=== PATIENT | female | born 1950 | race Hispanic/Latino ===

== ENCOUNTER 2018-05-30 11:43 | Outpatient (CLI) | payer OTHER | END 2018-05-30 11:44 | disposition home or self-care (01) | LOC: C.PAT 11:43 | DX: R22.1 Localized swelling, mass and lump, neck (principal) ==

== ENCOUNTER 2018-06-07 06:09 | Day surgery (SDC) | payer OTHER ==
[2018-06-07] MEDS ORDERED: ceFAZolin 1 gm in NS 1 GM/100 ML BAG IVPB ONE (07:00)
[2018-06-07 08:34] VITALS: BMI 26.4
[2018-06-07] MEDS ORDERED: Acetaminophen-Codeine 300/30 mg Tab PO PRN (09:17)
[2018-06-07] MEDS ORDERED: Dextrose 5%/0.45% NS 1,000 ML IV SCH (09:30)
[2018-06-07] MEDS ORDERED: Lidocaine/Epinephrine 1% 1:100000 10 ML IJ ONE (09:48)
[2018-06-07] MEDS ORDERED: Midazolam 2 MG/2 ML VIAL ONE (09:58)
[2018-06-07] MEDS ORDERED: Propofol 10 mg/ml Inj (20 ML) ONE (09:59)
[2018-06-07] MEDS ORDERED: Lidocaine 4% (Laryng-O-Jet) Kit MM ONE (10:06)
[2018-06-07] MEDS ORDERED: HYDROmorphone 0.5 mg/0.5 ml ISec IVP PRN (10:44)
[2018-06-07] MEDS ORDERED: Lactated Ringer's 1,000 ML IV SCH (11:00)
[2018-06-07 11:58] VITALS: TEMP 98.8
[2018-06-07 16:12] VITALS: BP 110/62; PULSE 68; RESP 18; O2SAT 96
--- NOTE | 2018-06-07 20:05 | OP ---
PROCEDURE DATE: 06/07/2018 PREOPERATIVE DIAGNOSIS: Throat mass. POSTOPERATIVE DIAGNOSIS: Throat mass. PROCEDURE: Micro direct laryngoscopy with biopsy. SIGNIFICANT FINDINGS: Throat lesion on the epiglottis going to the AE fold, false cord. DESCRIPTION OF PROCEDURE: The patient was brought into room, placed in supine position. Anesthesia was initiated through an ET tube. Shoulder roll was placed and neck extended. Wet gauze was placed over the upper teeth in order to protect them. The patient was draped in usual manner. Direct laryngoscope was inserted into oral cavity, passed to oropharynx and hypopharynx. The pharyngeal diallo, base of tongue, vallecula, epiglottis, AE folds, false cords, and arytenoids were then brought into view. Lesion was noted on the AE folds and epiglottis going to false cords. The direct laryngoscope was suspended on the [employer] stand while viewing the lesion. Microscope was brought into position to view the lesion. Multiple biopsies were taken on the right and left sides and bleeding was controlled using cold water irrigation. The microscope was taken out of position. The direct laryngoscope was taken off suspension and removed. The patient was taken off anesthesia and taken to recovery room in stable manner. Zenon Mendiola MD
== END 2018-06-07 16:05 | disposition home or self-care (01) ==
LOC: C.SDS 06:09
PROVIDERS: ATTEND Otolaryngology
DX: C32.1 Malignant neoplasm of supraglottis (principal); J39.2 Other diseases of pharynx; R22.1 Localized swelling, mass and lump, neck; I10 Essential (primary) hypertension; E11.9 Type 2 diabetes mellitus without complications
CPT/HCPCS: 31535; 82948; 88305; J0690; J2250; J2704; J3010

== ENCOUNTER 2018-06-09 11:15 | Observation (INO) | payer OTHER ==
[2018-06-09 11:16] VITALS: BMI 26.4
--- NOTE | 2018-06-09 12:09 | C.PDOC ---
History Of Present Illness 68 years old female presents to ED for evaluation of dysphagia. Patient reports recent laryngeal biopsy (06/07/18) and since then experienced difficulty swallowing and throat pain. Denies shortness of breath, fever, hemoptysis, or a ny other complaints. Patient reports concerns of possible aspiration prompted the ED visit. Time Seen by Provider: 06/09/18 11:46 Chief Complaint (Nursing): Shortness Of Breath History Per: Patient History/Exam Limitations: no limitations Onset/Duration Of Symptoms: Hrs Current Symptoms Are (Timing): Still Present Current Respiratory Medications: See Home Med List Associated Symptoms: denies: Bloody Cough, Productive Cough Recent travel outside of the [place]: No Past Medical History Reviewed: Historical Data, Nursing Documentation, Vital Signs Vital Signs: Last Vital Signs Temp 99.1 F 06/09/18 11:23 Pulse 60 06/09/18 11:23 Resp 18 06/09/18 11:23 BP 116/76 06/09/18 11:23 Pulse Ox 98 06/09/18 11:23 - Medical History PMH: HTN, Hypercholesterolemia, Kidney Stones (passed without intervention), Chronic Kidney Disease Surgical History: Appendectomy Family History: States: No Known Family Hx - Social History Hx Alcohol Use: No Hx Substance Use: No - Immunization History Hx Tetanus Toxoid Vaccination: No Hx Influenza Vaccination: No Hx Pneumococcal Vaccination: No Review Of Systems Except As Marked, All Systems Reviewed And Found Negative. Constitutional: Negative for: Fever, Chills ENT: Positive for: Throat Pain, Other (Difficulty swallowing ) Gastrointestinal: Negative for: Nausea, Vomiting, Abdominal Pain, Diarrhea Genitourinary: Negative for: Dysuria Skin: Negative for: Rash Physical Exam - Physical Exam Appears: Non-toxic, No Acute Distress Skin: Normal Color, Warm, Dry, No Rash Head: Atraumatic, Normacephalic Eye(s): bilateral: Normal Inspection, PERRL, EOMI Oral Mucosa: Moist Throat: Other (Mild ecchymosis of oropharynx) Neck: Normal ROM, Supple Cardiovascular: Rhythm Regular, No Murmur Respiratory: No Rales, No Rhonchi, No Wheezing, Other (Hoarseness in voice) Gastrointestinal/Abdominal: Soft, No Tenderness Extremity: Normal ROM Extremity: Bilateral: Atraumatic, Normal Color And Temperature, Normal ROM Pulses: Left Radial: Normal, Right Radial: Normal Neurological/Psych: Oriented x3, Normal Speech Gait: Steady ED Course And Treatment - Laboratory Results Result Diagrams: 06/09/18 12:15 06/09/18 12:15 O2 Sat by Pulse Oximetry: 98 (RA) Pulse Ox Interpretation: Normal - Radiology CXR: Interpreted by Me, Viewed By Me CXR Interpretation: Yes: No Acute Disease. No: Infiltrates, Pnemothorax - Other Rad CXR X-Ray: Viewed By Me, Read By Radiologist Interpretation: Date of service: 06/09/2018. HISTORY: SOB. COMPARISON: Chest radiographs 05/30/2018. FINDINGS: LUNGS: No active pulmonary disease. PLEURA: No significant pleural effusion identified, no pneumothorax apparent. CARDIOVASCULAR: No aortic atherosclerotic calcification present. Normal cardiac size. No pulmonary vascular congestion. OSSEOUS STRUCTURES: No sign ificant abnormalities. VISUALIZED UPPER ABDOMEN: Normal. OTHER FINDINGS: None. IMPRESSION: No interval acute cardiopulmonary disease appreciated. Medical Decision Making Medical Decision Making: Plan: * IV Fluids * Blood work * CXR * Urinalysis Progress: Discussed case with Dr. Mendiola which recommended to admit patient for dehydration; states no CT imaging necessary at this time, but ordered CXR. Patient will be admitted. 14:00: Spoke with Dr. Anderson(hospitalist fabrication supervisor) which accepted patient for admission to regular floor. Disposition Discussed With : Jagdeep Anderson - Disposition Disposition: HOSPITALIZED Disposition Time: 14:02 Condition: STABLE - Clinical Impression Clinical Impression: Dysphagia - Scribe Statement The provider has reviewed the documentation as recorded by the Marlaibguanaco Alan All medical record entries made by the Marlaibguanaco were at my direction and personally dictated by me. I have reviewed the chart and agree that the record accurately reflects my personal performance of the history, physical exam, [facility] decision making, and the department course for this patient. I have also personally directed, reviewed, and agree with the discharge instructions and disposition.
[2018-06-09] MEDS ORDERED: Sodium Chloride 0.9% 1,000 ML ONE (12:15)
[2018-06-09] MEDS ORDERED: Sodium Chloride 0.9% 1,000 ML IV SCH (12:15)
[2018-06-09 12:21] LABS: BASO % 0.7 % (0.0-2.0); EOS % 0.5 % (0.0-4.0); HEMOGLOBIN 12.8 g/dL (11.0-16.0); LYMPH # 1.1 K/uL (1.0-4.3); LYMPH % 16.5 % (20.0-40.0); MEAN CELL VOLUME 91.8 fL (81.0-99.0); MEAN CORPUSCULAR HGB CONC 33.8 g/dL (33.0-37.0); MONO # 0.5 K/uL (0.0-0.8); MONO % 7.1 % (0.0-10.0); NEUT # 5.1 K/uL (1.8-7.0); NEUT % 75.2 % (50.0-75.0); RBC 4.14 Mil/uL (3.80-5.20); RED CELL DISTRIBUTION WIDTH 13.4 % (11.5-14.5); WHITE BLOOD COUNT 6.8 K/uL (4.8-10.8)
[2018-06-09 12:52] LABS: ALB/GLOB RATIO 1.3 (1.0-2.1); ALBUMIN 4.2 g/dL (3.5-5.0); ALT/SGPT 8 U/L (9-52); AST/SGOT 22 U/L (14-36); BLOOD UREA NITROGEN 15 mg/dL (7-17); CALCIUM 9.6 mg/dl (8.6-10.4); GFR NON-AFRICAN AMERICAN > 60
--- NOTE | 2018-06-09 14:17 | CP.PCM.HP ---
<Filippo Meza - Last Filed: 06/09/18 18:56> History of Present Illness - History of Present Illness History of Present Illness: PGY2 Medicine H+P for Dr. Anderson Patient is a 68 year old female with a past medical history of diabetes, hypertension, hyperlipidemia, kidney stone (passed without intervention) and a laryngeal mass is presenting to the emergency room with a complaint of difficult y swallowing. Patient has been experiencing difficulty swallowing and voice changes for the past 5 months. She recently went to see Dr. 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 She had a biopsy of the mass on 06/07/18. She was able to tolerate some pudding on the day of the biopsy but has been unable to tolerate any food or liquids since. Every time that she attempts to drink some water, she begins coughing and starts to feel short of breath. She has lost 18 pounds over the past 5 months because she has been eating less due to fear of coughing. She denies any pain with swallowing. Denies fevers, chills, nausea, vomiting, diarrhea, constipation, chest pain, shortness of breath, abdominal pain, headaches, vision changes, runny nose, urinary symptoms, PMD: Dr. Opal Macias PMH: diabetes, hypertension, hyperlipidemia, kidney stone (passed without intervention) and a laryngeal mass PSH: appendectomy, biopsy of laryngeal mass (06/07/18) Family: Father of lung cancer Social: Former smoker 1/2 ppd for 40 years (quit 10 days ago), denies alcohol or illicit drug use Allergies: [facility] Pharmacy: [facility] Medications: * Metformin * Lisinopril * Atorvastatin * Aspirin * Calcium Carbonate Present on Admission - Present on Admission Any Indicators Present on Admission: No Review of Systems - Review of Systems All systems: reviewed and no additional remarkable complaints except (as per HPI) Past Patient History - Past Medical History & Family History Past Medical History?: Yes - Past Social History Smoking Status: Heavy Smoker > 10 Cigarettes Daily - CARDIAC Hx Hypercholesterolemia: Yes Hx Hypertension: Yes - HEENT Hx HEENT Problems: Yes (hoarseness) - RENAL Hx Chronic Kidney Disease: Yes Hx Kidney Stones: Yes (passed without intervention) - ENDOCRINE/METABOLIC Hx Endocrine Disorders: Yes Hx Diabetes Mellitus Type 2: Yes - MUSCULOSKELETAL/RHEUMATOLOGICAL Hx Musculoskeletal Disorders: Yes Hx Osteoarthritis: Yes - GASTROINTESTINAL Hx Gastrointestinal Disorders: Yes HX Swallowing Problems: Yes - GENITOURINARY/GYNECOLOGICAL Hx Genitourinary Disorders: Yes Hx Hematuria: Yes - PSYCHIATRIC Hx Substance Use: No - SURGICAL HISTORY Hx Appendectomy: Yes - ANESTHESIA Hx Anesthesia: Yes Hx Anesthesia Reactions: No Hx Malignant Hyperthermia: No Meds Allergies/Adverse Reactions: Allergies Allergy/AdvReac Type Severity Reaction Status Date / Time No Known Allergies Allergy Verified 06/09/18 11:22 Physical Exam - Constitutional Appears: Non-toxic, No Acute Distress - Head Exam Head Exam: ATRAUMATIC - Eye Exam Eye Exam: Normal appearance - ENT Exam ENT Exam: Mucous Membranes Moist - Neck Exam Neck exam: Positive for: Full Rom, Normal Inspection. Negative for: Lymphadenopathy, Tenderness, Thyromegaly - Respiratory Exam Respiratory Exam: Clear to Auscultation Bilateral, NORMAL BREATHING PATTERN. absent: Accessory Muscle Use, Rales, Rhonchi, Wheezes, Respiratory Distress Additional comments: Voice is horse - Cardiovascular Exam Cardiovascular Exam: REGULAR RHYTHM, +S1, +S2 - GI/Abdominal Exam GI & Abdominal Exam: Soft. absent: Distended, Firm, Guarding, Rigid, Tenderness - Extremities Exam Extremities exam: Positive for: pedal pulses present. Negative for: calf tenderness, pedal edema - Neurological Exam Neurological exam: Alert, Oriented x3 - Psychiatric Exam Psychiatric exam: Normal Affect, Normal Mood - Skin Skin Exam: Dry, Warm Results - Vital Signs Recent Vital Signs: Last Vital Signs Temp 99.1 F 06/09/18 11:23 Pulse 60 06/09/18 11:23 Resp 18 06/09/18 11:23 BP 116/76 06/09/18 11:23 Pulse Ox 98 06/09/18 14:06 - Labs Result Diagrams: 06/09/18 12:15 06/09/18 12:15 Labs: Laboratory Results - last 24 hr 06/09/18 06/09/18 12:15 12:15 WBC 6.8 RBC 4.14 Hgb 12.8 Hct 38.0 MCV 91.8 MCH 31.0 MCHC 33.8 RDW 13.4 Plt Count 259 MPV 8.0 Neut % (Auto) 75.2 H Lymph % (Auto) 16.5 L [place] % (Auto) 7.1 Eos % (Auto) 0.5 Baso % (Auto) 0.7 Neut # (Auto) 5.1 Lymph # (Auto) 1.1 [place] # (Auto) 0.5 Eos # (Auto) 0.0 Baso # (Auto) 0.0 Sodium 138 Potassium 4.1 Chloride 104 Carbon Dioxide 23 Anion Gap 15 BUN 15 Creatinine 0.7 Est GFR ( Amer) > 60 Est GFR (Non-Af Amer) > 60 Random Glucose 92 Calcium 9.6 Total Bilirubin 0.9 AST 22 ALT 8 L Alkaline Phosphatase 83 Total Protein 7.3 Albumin 4.2 Globulin 3.1 Albumin/Globulin Ratio 1.3 Assessment & Plan - Assessment and Plan (Free Text) Plan: Laryngeal Mass ENT Consulted, Dr. Mendiola * Biopsy done on 06/07, results pending * f/u recs Head CT w/o (06/09/18): * No acute intracranial findings by standard CT criteria. Mild age related neuro degenerative changes are moderate fast by a limited diffuse cerebral atrophy. To exclude metastases as mentioned in clinical history, contrast CT is advised when feasible. If intravenous iodinated contrast is contraindicated in this patient consider follow-up MRI with and without gadolinium. Chest CT w/o (06/09/18): * Questionable solitary 3 mm nodule right upper lobe with remainder of the chest unremarkable. Imaging through the abdomen is compromised by lack images contrast however there is no overt evidence to suggest metastatic mass or lymphadenopathy. * Extensive sigmoid diverticulosis without diverticulitis. 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 * No CT evidence of significant lymphadenopathy in the neck. NPO Medications * NS@100 mL/hr Diabetes accuchecks ISS Patient takes Metformin of unknown dose at home. Her pharmacy is [facility] in [place]. Need to call and clarify. Hold at this time as patient is NPO. Hypertension continue to monitor Hold home Aspirin Patient takes Lisinopril of unknown dose at home. Her pharmacy is [facility] in [place]. Need to call and clarify. Hold at this time as patient is NPO. No medications by mouth at this time. Only IVP. HLD Patient takes Atorvastatin of unknown dose at home. Her pharmacy is [facility] in [place]. Need to call and clarify. Hold at this time as patient is NPO. Prophylactic Care Heparin 5,000u SC q12h Patient is very scared to be intubated but at this time is a Full Code. She appears to be unsure if she wants to be a full code, but family is pressuring her. She does not want to make DNR/DNI decision at this time. She has two daughters that are responsible for the healthcare decisions. Tati Richardson believes she signed P.O.A. paperwork at a previous time. She will look for the paper work and try to bring it in. The other daughter's name is Jax Gorman. Tati will be the main point person on all decisions but will be undergoing her own surgery tomorrow. Please call Jax Gorman with any updates on 06/10/18 as Tati Richardson will be unavailable. Family would like someone to be at bedside any time that the patient is given any new news. Tati Richardson - Jax Gorman - Case discussed with Dr. Monica Barkley Susana PGY2 <Jagdeep Anderson - Last Filed: 06/10/18 07:22> Results - Vital Signs Recent Vital Signs: Last Vital Signs Temp 98.2 F 06/10/18 00:00 Pulse 67 06/10/18 00:00 Resp 20 06/10/18 00:00 BP 122/70 06/10/18 00:00 Pulse Ox 97 06/10/18 00:00 - Labs Result Diagrams: 06/10/18 06:43 06/10/18 06:43 Labs: Laboratory Results - last 24 hr 06/09/18 06/09/18 06/09/18 12:15 12:15 15:28 WBC 6.8 RBC 4.14 Hgb 12.8 Hct 38.0 MCV 91.8 MCH 31.0 MCHC 33.8 RDW 13.4 Plt Count 259 MPV 8.0 Neut % (Auto) 75.2 H Lymph % (Auto) 16.5 L [place] % (Auto) 7.1 Eos % (Auto) 0.5 Baso % (Auto) 0.7 Neut # (Auto) 5.1 Lymph # (Auto) 1.1 [place] # (Auto) 0.5 Eos # (Auto) 0.0 Baso # (Auto) 0.0 Sodium 138 Potassium 4.1 Chloride 104 Carbon Dioxide 23 Anion Gap 15 BUN 15 Creatinine 0.7 Est GFR ( Amer) > 60 Est GFR (Non-Af Amer) > 60 POC Glucose (mg/dL) Random Glucose 92 Calcium 9.6 Total Bilirubin 0.9 AST 22 ALT 8 L Alkaline Phosphatase 83 Total Protein 7.3 Albumin 4.2 Globulin 3.1 Albumin/Globulin Ratio 1.3 Urine Color Yellow Urine Clarity Clear Urine pH 6.0 Ur Specific Frederic 1.019 Urine Protein Negative Urine Glucose (UA) Normal Urine Ketones 1+ H Urine Blood 2+ H Urine Nitrate Negative Urine Bilirubin Negative Urine Urobilinogen 2.0 H Ur Leukocyte Esterase Neg Urine WBC (Auto) 2 Urine RBC (Auto) 28 H Ur Squamous Epith Cells 3 Urine Bacteria Rare 06/09/18 06/09/18 06/09/18 15:39 16:39 21:15 WBC RBC Hgb Hct MCV MCH MCHC RDW Plt Count MPV Neut % (Auto) Lymph % (Auto) [place] % (Auto) Eos % (Auto) Baso % (Auto) Neut # (Auto) Lymph # (Auto) [place] # (Auto) Eos # (Auto) Baso # (Auto) Sodium Potassium Chloride Carbon Dioxide Anion Gap BUN Creatinine Est GFR ( Amer) Est GFR (Non-Af Amer) POC Glucose (mg/dL) 80 76 73 Random Glucose Calcium Total Bilirubin AST ALT Alkaline Phosphatase Total Protein Albumin Globulin Albumin/Globulin Ratio Urine Color Urine Clarity Urine pH Ur Specific Frederic Urine Protein Urine Glucose (UA) Urine Ketones Urine Blood Urine Nitrate Urine Bilirubin Urine Urobilinogen Ur Leukocyte Esterase Urine WBC (Auto) Urine RBC (Auto) Ur Squamous Epith Cells Urine Bacteria 06/10/18 06/10/18 06/10/18 01:14 06:02 06:43 WBC 5.2 RBC 3.63 L Hgb 11.4 Hct 33.1 L MCV 91.1 MCH 31.3 H MCHC 34.3 RDW 13.1 Plt Count 230 MPV 7.7 Neut % (Auto) 70.8 Lymph % (Auto) 20.4 [place] % (Auto) 6.8 Eos % (Auto) 1.3 Baso % (Auto) 0.7 Neut # (Auto) 3.6 Lymph # (Auto) 1.1 [place] # (Auto) 0.3 Eos # (Auto) 0.1 Baso # (Auto) 0.0 Sodium Potassium Chloride Carbon Dioxide Anion Gap BUN Creatinine Est GFR ( Amer) Est GFR (Non-Af Amer) POC Glucose (mg/dL) 89 106 Random Glucose Calcium Total Bilirubin AST ALT Alkaline Phosphatase Total Protein Albumin Globulin Albumin/Globulin Ratio Urine Color Urine Clarity Urine pH Ur Specific Frederic Urine Protein Urine Glucose (UA) Urine Ketones Urine Blood Urine Nitrate Urine Bilirubin Urine Urobilinogen Ur Leukocyte Esterase Urine WBC (Auto) Urine RBC (Auto) Ur Squamous Epith Cells Urine Bacteria 06/10/18 06:43 WBC RBC Hgb Hct MCV MCH MCHC RDW Plt Count MPV Neut % (Auto) Lymph % (Auto) [place] % (Auto) Eos % (Auto) Baso % (Auto) Neut # (Auto) Lymph # (Auto) [place] # (Auto) Eos # (Auto) Baso # (Auto) Sodium 136 Potassium 3.7 Chloride 104 Carbon Dioxide 25 Anion Gap 11 BUN 10 Creatinine 0.6 L Est GFR ( Amer) > 60 Est GFR (Non-Af Amer) > 60 POC Glucose (mg/dL) Random Glucose 100 Calcium 9.1 Total Bilirubin 0.4 AST 16 ALT 12 Alkaline Phosphatase 69 Total Protein 6.1 L Albumin 3.4 L Globulin 2.8 Albumin/Globulin Ratio 1.2 Urine Color Urine Clarity Urine pH Ur Specific Frederic Urine Protein Urine Glucose (UA) Urine Ketones Urine Blood Urine Nitrate Urine Bilirubin Urine Urobilinogen Ur Leukocyte Esterase Urine WBC (Auto) Urine RBC (Auto) Ur Squamous Epith Cells Urine Bacteria Attending/Attestation - Attestation I have personally seen and examined this patient.: Yes I have fully participated in the care of the patient.: Yes I have reviewed all pertinent clinical information: Yes Notes (Text): 06/10/18 07:18 Medical attending: Patient was seen and examined by me. Agree with the above note by the resident The patient was not in any acute distress when I came and saw her - she was walking in the ER with family member This being said she had a raspy and hard to hear voice. Patient and her family report at least 5 months of decline + history of smoking for about 40 years The patient denied shortness of breath, denied feeling as if throat would close + We discussed the dysphagia and weightloss We did a breast and axillary exam and did not find nodules or masses Also ordered CT of the head anc chest abd pelvis as well Will consult her ENT. We are still pending that biopy from recently At some point once we have more information then will get hematology oncology Jagdeep Anderson
--- NOTE | 2018-06-09 14:28 | RAD ---
Date of service: 06/09/2018 HISTORY: SOB COMPARISON: Chest radiographs 05/30/2018. FINDINGS: LUNGS: No active pulmonary disease. PLEURA: No significant pleural effusion identified, no pneumothorax apparent. CARDIOVASCULAR: No aortic atherosclerotic calcification present. Normal cardiac size. No pulmonary vascular congestion. OSSEOUS STRUCTURES: No significant abnormalities. VISUALIZED UPPER ABDOMEN: Normal. OTHER FINDINGS: None. IMPRESSION: No interval acute cardiopulmonary disease appreciated.
[2018-06-09] MEDS ORDERED: Glucagon Recombinant 1 mg Inj IM PRN (15:14)
[2018-06-09] MEDS ORDERED: Dextrose 50% SYRINGE Inj (50 ml) IV PRN (15:14)
[2018-06-09 15:44] LABS: SQUAMOUS EPITHIAL 3 /hpf (0-5); URINE BACTERIA RARE (<OCC); URINE BILIRUBIN NEGATIVE (NEGATIVE); URINE BLOOD 2+ (NEGATIVE); URINE CLARITY Clear (Clear); URINE COLOR Yellow (YELLOW); URINE GLUCOSE (UA) NORMAL (Normal); URINE LEUKOCYTE ESTERASE NEG Leu/uL (Negative); URINE PROTEIN NEGATIVE (NEGATIVE)
[2018-06-09] MEDS: (Novolin R) Insulin Human Regular 100 units/ml vial SC SCH ×2 (15:45→22:06)
--- NOTE | 2018-06-09 17:43 | CT ---
Date of service: 06/09/2018 PROCEDURE: CT HEAD WITHOUT CONTRAST. HISTORY: r/o mets, hx of laryngeal mass COMPARISON: None available. TECHNIQUE: Axial computed tomography images were obtained through the head/brain without intravenous contrast. Radiation dose: Total exam DLP = 1053.12 mGy-cm. This CT exam was performed using one or more of the following dose reduction techniques: Automated exposure control, adjustment of the mA and/or kV according to patient size, and/or use of iterative reconstruction technique. FINDINGS: HEMORRHAGE: No intracranial hemorrhage. BRAIN: The siddiqi-white matter differentiation is well preserved. There is no mass effect or definitive edema pattern appreciated including the cortex. There is limited proportional expansion of the ventriculosulcal and cisternal spaces however in a pattern most compatible with diffuse cerebral atrophy. No suspicious extra-axial fluid collection is identified in the midline brain anatomy appears grossly nonfocal as imaged. VENTRICLES: Unremarkable. No hydrocephalus. CALVARIUM: Unremarkable. PARANASAL SINUSES: Unremarkable as visualized. No significant inflammatory changes. MASTOID AIR CELLS: Unremarkable as visualized. No inflammatory changes. OTHER FINDINGS: None. IMPRESSION: No acute intracranial findings by standard CT criteria. Mild age related neuro degenerative changes are moderate fast by a limited diffuse cerebral atrophy. To exclude metastases as mentioned in clinical history, contrast CT is advised when feasible. If intravenous iodinated contrast is contraindicated in this patient consider follow-up MRI with and without gadolinium.
--- NOTE | 2018-06-09 18:12 | CT ---
Date of service: 06/09/2018 PROCEDURE: CT Chest, Abdomen and Pelvis without intravenous contrast HISTORY: r/o mets, hx of laryngeal mass COMPARISON: None available. TECHNIQUE: Radiation dose: Total exam DLP = 488.65 mGy-cm. This CT exam was performed using one or more of the following dose reduction techniques: Automated exposure control, adjustment of the mA and/or kV according to patient size, and/or use of iterative reconstruction technique. FINDINGS: CT CHEST WITHOUT CONTRAST: LUNGS: Questionable 3 mm nodule right upper lobe image 29 series 3 with no additional pulmonary nodules or mass evident. This could reflect atelectasis as local ground-glass opacity is seen associated. Central airways appear clear. MEDIASTINUM: Unremarkable. Normal caliber aorta and pulmonary arterial trunk. Normal size heart. LYMPH NODES: Unremarkable. PLEURA: Unremarkable. No pneumothorax. No pleural fluid. BONES: Unremarkable. OTHER FINDINGS: Tiny hiatal hernia identified. CT ABDOMEN AND PELVIS: Surveillance for metastasis is compromised by lack of intravenous contrast. LIVER: Unremarkable. No gross lesion or ductal dilatation. GALLBLADDER AND BILE DUCTS: Cholelithiasis within a contracted gallbladder. PANCREAS: Unremarkable. No gross lesion or ductal dilatation. SPLEEN: Unremarkable. ADRENALS: Unremarkable. No mass. KIDNEYS AND URETERS: 2.4 cm medial upper pole left renal cyst identified. Additional lucencies are seen at the left kidney too small to characterize. VASCULATURE: Nonaneurysmal abdominal aortic calcific atherosclerotic changes are identified. BOWEL: Extensive sigmoid diverticulosis without diverticulitis. [id number] fecal loading is scattered throughout the large bowel. APPENDIX: Normal appendix. PERITONEUM: Unremarkable. No free fluid. No free air. LYMPH NODES: Unremarkable. No enlarged lymph nodes. BLADDER: Unremarkable. REPRODUCTIVE: Unremarkable. BONES: No acute fracture. OTHER FINDINGS: None. IMPRESSION: Questionable solitary 3 mm nodule right upper lobe with remainder of the chest unremarkable. Imaging through the abdomen is compromised by lack images contrast however there is no overt evidence to suggest metastatic mass or lymphadenopathy. Extensive sigmoid diverticulosis without diverticulitis.
[2018-06-09] MEDS: Dextrose 5%/0.45% NS 1,000 ML IV SCH (22:12)
[2018-06-10 01:03] VITALS: RESP 20
[2018-06-10 06:48] LABS: BASO % 0.7 % (0.0-2.0); EOS # 0.1 K/uL (0.0-0.7); EOS % 1.3 % (0.0-4.0); HEMOGLOBIN 11.4 g/dL (11.0-16.0); LYMPH # 1.1 K/uL (1.0-4.3); LYMPH % 20.4 % (20.0-40.0); MEAN CELL VOLUME 91.1 fL (81.0-99.0); MEAN CORPUSCULAR HEMOGLOBIN 31.3 pg (27.0-31.0); MEAN CORPUSCULAR HGB CONC 34.3 g/dL (33.0-37.0); MEAN PLATELET VOLUME 7.7 fL (7.2-11.7); MONO # 0.3 K/uL (0.0-0.8); MONO % 6.8 % (0.0-10.0); NEUT # 3.6 K/uL (1.8-7.0); NEUT % 70.8 % (50.0-75.0); RBC 3.63 Mil/uL (3.80-5.20); RED CELL DISTRIBUTION WIDTH 13.1 % (11.5-14.5); WHITE BLOOD COUNT 5.2 K/uL (4.8-10.8)
[2018-06-10 07:04] LABS: ALB/GLOB RATIO 1.2 (1.0-2.1); ALBUMIN 3.4 g/dL (3.5-5.0); ALT/SGPT 12 U/L (9-52); AST/SGOT 16 U/L (14-36); BLOOD UREA NITROGEN 10 mg/dL (7-17); CALCIUM 9.1 mg/dl (8.6-10.4); GFR NON-AFRICAN AMERICAN > 60
--- NOTE | 2018-06-10 08:05 | CP.PCM.PN ---
<Magda Costa - Last Filed: 06/10/18 13:52> Subjective - Date & Time of Evaluation Date of Evaluation: 06/10/18 Time of Evaluation: 07:30 - Subjective Subjective: Patient examined at bedside. No acute overnight events. Patient reports Dr. Mendiola just finished evaluating her and she is very nervous about the idea of getting a tube for feeding. I assured her that would be a last resort if she is unable to swallow/eat properly. Patient is scheduled to go for barium swallow today. Therapist entered room during discussion and explained the process to pt. Therapist did bedside swallow and pt tolerated apple juice w/ increased work to swallow. Per pt's request, I explained daily events to daughter by phone. Pt reports her cough has improved since yesterday. Denies sore throat, phlegm, chest pain, SOB Objective - Vital Signs/Intake and Output Vital Signs (last 24 hours): Temp Pulse Resp BP Pulse Ox 98.2 F 67 20 122/70 97 06/10/18 00:00 06/10/18 00:00 06/10/18 00:00 06/10/18 00:00 06/10/18 00:00 Intake and Output: 06/10/18 06/10/18 06:59 18:59 Intake Total 800 Balance 800 - Medications Medications: Current Medications Dextrose (Dextrose 50% Inj) 0 ml IV STAT PRN; Protocol PRN Reason: Hypoglycemia Protocol Dextrose (Glutose 15) 0 gm PO ONCE PRN; Protocol PRN Reason: Hypoglycemia Protocol Glucagon (Glucagen Diagnostic Kit) 0 mg IM STAT PRN; Protocol PRN Reason: Hypoglycemia Protocol Heparin Sodium (Porcine) (Heparin) 5,000 units SC Q12 GREER Last Admin: 06/09/18 21:52 Dose: Not Given Dextrose (Dextrose 5% In Water 1000 Ml) 1,000 mls @ 0 mls/hr IV .Q0M PRN; Protocol PRN Reason: Hypoglycemia Protocol Dextrose/Sodium Chloride (Dextrose 5%/0.45% Ns 1000 Ml) 1,000 mls @ 100 mls/hr IV .Q10H GREER Last Admin: 06/09/18 22:12 Dose: 100 mls/hr Insulin Human Regular (Novolin R) 0 unit SC Q6H GREER; Protocol Last Admin: 06/09/18 22:06 Dose: Not Given - Labs Labs: 06/10/18 06:43 06/10/18 06:43 - Constitutional Appears: Non-toxic, No Acute Distress - Head Exam Head Exam: ATRAUMATIC, NORMAL INSPECTION, NORMOCEPHALIC - Eye Exam Eye Exam: EOMI, Normal appearance - ENT Exam ENT Exam: Mucous Membranes Dry, Normal Exam, Normal Oropharynx - Neck Exam Neck Exam: Full ROM, Normal Inspection. absent: Tenderness, Thyromegaly - Respiratory Exam Respiratory Exam: Decreased Breath Sounds, Clear to Ausculation Bilateral, NORMAL BREATHING PATTERN. absent: Wheezes - Cardiovascular Exam Cardiovascular Exam: REGULAR RHYTHM. absent: Tachycardia - GI/Abdominal Exam GI & Abdominal Exam: Soft, Normal Bowel Sounds. absent: Tenderness - Extremities Exam Extremities Exam: Normal Inspection. absent: Calf Tenderness, Pedal Edema - Neurological Exam Neurological Exam: Alert, Awake - Psychiatric Exam Psychiatric exam: Anxious - Skin Skin Exam: Dry, Intact, Normal Color, Warm Assessment and Plan - Assessment and Plan (Free Text) Assessment: 68 year old female admitted for evaluation of laryngeal mass and treatment of associated dysphagia and weight loss. Plan: Laryngeal Mass -f/u pathology results from 06/07 biopsy -barium swallow(06/10) reveals no aspiration, -starting thin regular diet per speech therapist recommendation -Dr. Mendiola, ENT consult Head CT w/o (06/09/18): * No acute intracranial findings by standard CT criteria. Mild age related neuro degenerative changes are moderate fast by a limited diffuse cerebral atrophy. To exclude metastases as mentioned in clinical history, contrast CT is advised when feasible. If intravenous iodinated contrast is contraindicated in this patient consider follow-up MRI with and without gadolinium. Chest CT w/o (06/09/18): * Questionable solitary 3 mm nodule right upper lobe with remainder of the chest unremarkable. Imaging through the abdomen is compromised by lack images contrast however there is no overt evidence to suggest metastatic mass or lymphadenopathy. * Extensive sigmoid diverticulosis without diverticulitis. 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 * No CT evidence of significant lymphadenopathy in the neck. Diabetes accuchecks Q6 ISS Low, Q6 Hypoglycemia protocol Hold home Metformin, dose unknown. F/u w/ pharmacy, [facility] in [place]. Hypertension stable and WNL, continue to monitor Hold home Aspirin Hold home Lisinopril, dose unknown f/u w/ pharmacy HLD Hold home Atorvaststin, dose unknown, f/u w/ pharmacy Prophylactic Care Heparin 5,000u SC q12h, SCDs Patient is very scared to be intubated but at this time is a Full Code. She a ppears to be unsure if she wants to be a full code, but family is pressuring her. She does not want to make DNR/DNI decision at this time. She has two daughters that are responsible for the healthcare decisions. Tati Richardson believes she signed P.O.A. paperwork at a previous time. She will look for the paper work and try to bring it in. The other daughter's name is Jax Gorman. Tati will be the main point person on all decisions but will be undergoing her own surgery tomorrow. Please call Jax Gorman with any updates on 06/10/18 as Tati Munozcelia will be unavailable. Family would like someone to be at bedside any time that the patient is given any new news. Tati Munozcelia - Jax Gorman - Discussed w/ Dr. Anderson -Magda Costa, PGY-1 <Jagdeep Anderson - Last Filed: 06/10/18 14:24> Objective - Vital Signs/Intake and Output Vital Signs (last 24 hours): Temp Pulse Resp BP Pulse Ox 97.9 F 61 20 136/70 97 06/10/18 08:12 06/10/18 08:12 06/10/18 08:12 06/10/18 08:12 06/10/18 08:12 Intake and Output: 06/10/18 06/10/18 06:59 18:59 Intake Total 800 Balance 800 - Medications Medications: Current Medications Dextrose (Dextrose 50% Inj) 0 ml IV STAT PRN; Protocol PRN Reason: Hypoglycemia Protocol Dextrose (Glutose 15) 0 gm PO ONCE PRN; Protocol PRN Reason: Hypoglycemia Protocol Glucagon (Glucagen Diagnostic Kit) 0 mg IM STAT PRN; Protocol PRN Reason: Hypoglycemia Protocol Heparin Sodium (Porcine) (Heparin) 5,000 units SC Q12 GREER Last Admin: 06/10/18 10:27 Dose: 5,000 units Dextrose (Dextrose 5% In Water 1000 Ml) 1,000 mls @ 0 mls/hr IV .Q0M PRN; Pro tocol PRN Reason: Hypoglycemia Protocol Dextrose/Sodium Chloride (Dextrose 5%/0.45% Ns 1000 Ml) 1,000 mls @ 100 mls/hr IV .Q10H GREER Last Admin: 06/10/18 11:09 Dose: 100 mls/hr Insulin Human Regular (Novolin R) 0 unit SC Q6H GREER; Protocol Last Admin: 06/10/18 10:26 Dose: Not Given - Labs Labs: 06/10/18 06:43 06/10/18 06:43 Attending/Attestation - Attestation I have personally seen and examined this patient.: Yes I have fully participated in the care of the patient.: Yes I have reviewed all pertinent clinical information, including history, physical exam and plan: Yes Notes (Text): 06/10/18 14:21 Medical attending: Patient was seen and examined by me. Agree with the above note by the resident The patient was not in any acute distress. She had a plesant affect Today will later be going for a barium swallow study We also discussed the results of the CT of the chest with her, there is a 3mm area that will need to be watched carefully Jagdeep Anderson
[2018-06-10] MEDS ORDERED: Influenza Vaccine 60 mcg/0.5 mL SYR (4YR UP) IM ONE (10:00)
[2018-06-10] MEDS ORDERED: Pneumococcal 23-Valent Vaccine IM ONE (10:00)
[2018-06-10] MEDS: (Novolin R) Insulin Human Regular 100 units/ml vial SC SCH ×3 (10:26→18:24)
[2018-06-10] MEDS: Dextrose 5%/0.45% NS 1,000 ML IV SCH ×2 (11:09→17:01)
[2018-06-10] MEDS ORDERED: Barium Sulfate for Susp 98% w/w 340g Bottle ONE (12:03)
--- NOTE | 2018-06-10 13:30 | RAD ---
Date of service: 06/10/2018 PROCEDURE: Modified barium swallow study. HISTORY: dysphagia COMPARISON: None available. TECHNIQUE: Under fluoroscopic guidance, barium meals of various consistency were administered to the patient by the speech pathologist. FINDINGS: Flash penetration was observed during the study. No gross aspiration was observed during this study. IMPRESSION: Flash penetration was observed during the study. No gross aspiration was observed during this study. Please refer to the detailed report and recommendations of the speech pathologist.
--- NOTE | 2018-06-10 20:16 | CON ---
DATE: 06/10/2018 REASON FOR CONSULTATION: Dysphagia. REQUESTING PHYSICIAN: Jagdeep Anderson DO HISTORY OF PRESENT ILLNESS: This is a 68-year-old female status post micro direct laryngoscopy with biopsy three days ago. The patient has difficulty tolerating p.o. at this point and says that cannot pass foods. The patient was admitted to the hospital. PHYSICAL EXAMINATION: HEAD: Atraumatic, normocephalic. FACE: Good facial movements bilaterally. CONSTITUTIONAL: Well fed, well nourished. COMMUNICATION: Communicates well and appropriately. EXTERNAL NOSE AND EARS: No masses. No lesions. No erythema. No edema. INTERNAL NOSE: Deviated septum. No masses. No lesions. No erythema. No edema. ORAL CAVITY AND OROPHARYNX: No masses. No lesions. No erythema. No edema. LIPS AND GUMS: No masses. No lesions. No erythema. No edema. NECK: Supple. No thyromegaly. No goiter. LYMPH NODES: No lymphadenopathy of the neck. ASSESSMENT: 1. Dysphagia. 2. Deviated septum. 3. Throat mass. PLAN: The patient should have modified barium swallow or dysphagia eval done to see what she can and cannot tolerate and we will wait for the path results to come back. Zenon Mendiola MD
[2018-06-11] MEDS: (Novolin R) Insulin Human Regular 100 units/ml vial SC SCH ×2 (00:28→06:57)
[2018-06-11] MEDS: Dextrose 5%/0.45% NS 1,000 ML IV SCH (05:34)
--- NOTE | 2018-06-11 07:34 | CP.PCM.PN ---
Subjective - Date & Time of Evaluation Date of Evaluation: 06/11/18 Time of Evaluation: 07:32 - Subjective Subjective: PGY-1 Damaris Manrique D.O. Medicine progress note for Dr. Ortega's service: Patient was seen and examined this morning. Objective - Vital Signs/Intake and Output Vital Signs (last 24 hours): Temp Pulse Resp BP Pulse Ox 98.1 F 71 20 125/75 98 06/11/18 00:00 06/11/18 00:00 06/11/18 00:00 06/11/18 00:00 06/11/18 04:00 - Medications Medications: Current Medications Dextrose (Dextrose 50% Inj) 0 ml IV STAT PRN; Protocol PRN Reason: Hypoglycemia Protocol Dextrose (Glutose 15) 0 gm PO ONCE PRN; Protocol PRN Reason: Hypoglycemia Protocol Glucagon (Glucagen Diagnostic Kit) 0 mg IM STAT PRN; Protocol PRN Reason: Hypoglycemia Protocol Heparin Sodium (Porcine) (Heparin) 5,000 units SC Q12 GREER Last Admin: 06/10/18 21:11 Dose: Not Given Dextrose (Dextrose 5% In Water 1000 Ml) 1,000 mls @ 0 mls/hr IV .Q0M PRN; Protocol PRN Reason: Hypoglycemia Protocol Dextrose/Sodium Chloride (Dextrose 5%/0.45% Ns 1000 Ml) 1,000 mls @ 100 mls/hr IV .Q10H GREER Last Admin: 06/11/18 05:34 Dose: 100 mls/hr Insulin Human Regular (Novolin R) 0 unit SC Q6H GREER; Protocol Last Admin: 06/11/18 06:57 Dose: Not Given - Labs Labs: 06/10/18 06:43 06/10/18 06:43 Assessment and Plan - Assessment and Plan (Free Text) Assessment: 68 year old female admitted for evaluation of laryngeal mass and treatment of associated dysphagia and weight loss. Plan: Laryngeal Mass -f/u pathology results from 06/07 biopsy -barium swallow(06/10) reveals no aspiration, -starting thin regular diet per speech therapist recommendation -Dr. Mendiola, ENT consult Head CT w/o (06/09/18): * No acute intracranial findings by standard CT criteria. Mild age related neuro degenerative changes are moderate fast by a limited diffuse cerebral atrophy. To exclude metastases as mentioned in clinical history, contrast CT is advised when feasible. If intravenous iodinated contrast is contraindicated in this patient consider follow-up MRI with and without gadolinium. Chest CT w/o (06/09/18): * Questionable solitary 3 mm nodule right upper lobe with remainder of the chest unremarkable. Imaging through the abdomen is compromised by lack images contrast however there is no overt evidence to suggest metastatic mass or lymphadenopathy. * Extensive sigmoid diverticulosis without diverticulitis. 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 * No CT evidence of significant lymphadenopathy in the neck. Diabetes accuchecks Q6 ISS Low, Q6 Hypoglycemia protocol Hold home Metformin, dose unknown. F/u w/ pharmacy, [facility] in [place]. Hypertension stable and WNL, continue to monitor Hold home Aspirin Hold home Lisinopril, dose unknown f/u w/ pharmacy HLD Hold home Atorvaststin, dose unknown, f/u w/ pharmacy Ppx: VTE: Heparin 5,000u SC q12h, SCDs GI: not indicated Code status: full code Case discussed with attending, Dr. Ortega.
[2018-06-11 07:42] LABS: BASO % 0.5 % (0.0-2.0); EOS # 0.1 K/uL (0.0-0.7); EOS % 1.8 % (0.0-4.0); HEMOGLOBIN 11.5 g/dL (11.0-16.0); LYMPH % 21.6 % (20.0-40.0); MEAN CELL VOLUME 91.4 fL (81.0-99.0); MEAN CORPUSCULAR HEMOGLOBIN 31.3 pg (27.0-31.0); MEAN CORPUSCULAR HGB CONC 34.2 g/dL (33.0-37.0); MEAN PLATELET VOLUME 7.9 fL (7.2-11.7); MONO # 0.4 K/uL (0.0-0.8); MONO % 7.5 % (0.0-10.0); NEUT # 3.3 K/uL (1.8-7.0); NEUT % 68.6 % (50.0-75.0); RBC 3.69 Mil/uL (3.80-5.20); RED CELL DISTRIBUTION WIDTH 13.6 % (11.5-14.5); WHITE BLOOD COUNT 4.8 K/uL (4.8-10.8)
[2018-06-11 08:36] VITALS: O2SAT 96
[2018-06-11 08:40] LABS: ALB/GLOB RATIO 1.3 (1.0-2.1); ALBUMIN 3.4 g/dL (3.5-5.0); ALT/SGPT 22 U/L (9-52); AST/SGOT 27 U/L (14-36); BLOOD UREA NITROGEN 6 mg/dL (7-17); CALCIUM 8.9 mg/dl (8.6-10.4); GFR NON-AFRICAN AMERICAN > 60
[2018-06-11] MEDS ORDERED: (Novolin R) Insulin Human Regular 100 units/ml vial SC SCH (11:30)
--- NOTE | 2018-06-11 13:39 | CP.PCM.DIS ---
Provider - Provider Date of Admission: 06/09/18 13:59 Attending physician: David Ortega MD Primary care physician: Dr. Opal Macias Consults: 06/09/18 18:28 ENT [Otolaryngology Consult] Routine Consulting Provider: Zenon Mendiola Consulting Physician: Zenon Mendiola Reason for Consult: laryngeal mass Time Spent in preparation of Discharge (in minutes): 45 Diagnosis - Discharge Diagnosis (1) Laryngeal mass Status: Acute Priority: High (2) Dysphagia Status: Acute Priority: High Hospital Course - Lab Results Lab Results: Most Recent Lab Values WBC 4.8 K/uL (4.8-10.8) 06/11/18 07:31 RBC 3.69 Mil/uL (3.80-5.20) L 06/11/18 07:31 Hgb 11.5 g/dL (11.0-16.0) 06/11/18 07:31 Hct 33.7 % (34.0-47.0) L 06/11/18 07:31 MCV 91.4 fL (81.0-99.0) 06/11/18 07:31 MCH 31.3 pg (27.0-31.0) H 06/11/18 07:31 MCHC 34.2 g/dL (33.0-37.0) 06/11/18 07:31 RDW 13.6 % (11.5-14.5) 06/11/18 07:31 Plt Count 228 K/uL (130-400) 06/11/18 07:31 MPV 7.9 fL (7.2-11.7) 06/11/18 07:31 Neut % (Auto) 68.6 % (50.0-75.0) 06/11/18 07:31 Lymph % (Auto) 21.6 % (20.0-40.0) 06/11/18 07:31 [place] % (Auto) 7.5 % (0.0-10.0) 06/11/18 07:31 Eos % (Auto) 1.8 % (0.0-4.0) 06/11/18 07:31 Baso % (Auto) 0.5 % (0.0-2.0) 06/11/18 07:31 Neut # (Auto) 3.3 K/uL (1.8-7.0) 06/11/18 07:31 Lymph # (Auto) 1.0 K/uL (1.0-4.3) 06/11/18 07:31 [place] # (Auto) 0.4 K/uL (0.0-0.8) 06/11/18 07:31 Eos # (Auto) 0.1 K/uL (0.0-0.7) 06/11/18 07:31 Baso # (Auto) 0.0 K/uL (0.0-0.2) 06/11/18 07:31 Sodium 136 mmol/L (132-148) 06/11/18 07:31 Potassium 3.9 mmol/L (3.6-5.2) 06/11/18 07:31 Chloride 105 mmol/L (98-107) 06/11/18 07:31 Carbon Dioxide 24 mmol/L (22-30) 06/11/18 07:31 Anion Gap 11 (10-20) 06/11/18 07:31 BUN 6 mg/dL (7-17) L 06/11/18 07:31 Creatinine 0.6 mg/dL (0.7-1.2) L 06/11/18 07:31 Est GFR ( Amer) > 60 06/11/18 07:31 Est GFR (Non-Af Amer) > 60 06/11/18 07:31 POC Glucose (mg/dL) 143 mg/dL (65-110) H 06/11/18 11:19 Random Glucose 115 mg/dL (65-105) H 06/11/18 07:31 Calcium 8.9 mg/dl (8.6-10.4) 06/11/18 07:31 Total Bilirubin 0.4 mg/dL (0.2-1.3) 06/11/18 07:31 AST 27 U/L (14-36) 06/11/18 07:31 ALT 22 U/L (9-52) 06/11/18 07:31 Alkaline Phosphatase 68 U/L (38-126) 06/11/18 07:31 Total Protein 6.1 g/dL (6.3-8.3) L 06/11/18 07:31 Albumin 3.4 g/dL (3.5-5.0) L 06/11/18 07:31 Globulin 2.7 gm/dL (2.2-3.9) 06/11/18 07:31 Albumin/Globulin Ratio 1.3 (1.0-2.1) 06/11/18 07:31 TSH 3rd Generation 1.03 mIU/L (0.46-4.68) 06/10/18 06:43 Urine Color Yellow (YELLOW) 06/09/18 15:28 Urine Clarity Clear (Clear) 06/09/18 15:28 Urine pH 6.0 (5.0-8.0) 06/09/18 15:28 Ur Specific [place] 1.019 (1.003-1.030) 06/09/18 15:28 Urine Protein Negative mg/dL (NEGATIVE) 06/09/18 15:28 Urine Glucose (UA) Normal mg/dL (Normal) 06/09/18 15:28 Urine Ketones 1+ mg/dL (NEGATIVE) H 06/09/18 15:28 Urine Blood 2+ (NEGATIVE) H 06/09/18 15:28 Urine Nitrate Negative (NEGATIVE) 06/09/18 15:28 Urine Bilirubin Negative (NEGATIVE) 06/09/18 15:28 Urine Urobilinogen 2.0 mg/dL (0.2-1.0) H 06/09/18 15:28 Ur Leukocyte Esterase Neg Che/uL (Negative) 06/09/18 15:28 Urine WBC (Auto) 2 /hpf (0-5) 06/09/18 15:28 Urine RBC (Auto) 28 /hpf (0-3) H 06/09/18 15:28 Ur Squamous Epith Cells 3 /hpf (0-5) 06/09/18 15:28 Urine Bacteria Rare (<OCC) 06/09/18 15:28 - Hospital Course Hospital Course: Patient is a 68 year old female with a past medical history of diabetes, hypertension, hyperlipidemia, kidney stone (passed without intervention) and a laryngeal mass is presenting to the emergency room with a complaint of difficulty swallowing. Patient has been experiencing difficulty swallowing and voice changes for the past 5 months. She recently went to see Dr. 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 She had a biopsy of the mass on 06/07/18. She was able to tolerate some pudding on the day of the biopsy but has been unable to tolerate any food or liquids since. Every time that she attempts to drink some water, she begins coughing and starts to feel short of breath. She has lost 18 pounds over the past 5 months because she has been eating less due to fear of coughing. She denies any pain with swallowing. Denies fevers, chills, nausea, vomiting, diarrhea, constipation, chest pain, shortness of breath, abdominal pain, headaches, vision changes, runny nose, urinary symptoms, . 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 No CT evidence of significant lymphadenopathy in the neck. Biopsy on 06/07/18- pathology pending Imaging this admission: Head CT: no acute findings, no mets (advised contrast study or MRI) Chest CT: Questionable solitary 3 mm nodule right upper lobe with remainder of the chest unremarkable. No evidence of mets Patient initially made NPO and placed on IVF. Patient had barium swallow study that did not show any abnormalities. Patient was started on soft diet, which she tolerated. Patient's blood glucose was monitored throughout admission, and she was placed on insulin sliding scale for her diabetes. Vitals were monitored, and patient's BP was well-controlled. Upon discharge, patient still complaining of hoarseness. She was tolerating soft diet. Denied significant dysphagia but still has some anxiety regarding swallowing. Patient will follow-up with ENT as outpatient to receive biopsy results. Discharge Exam - Head Exam Head Exam: ATRAUMATIC, NORMAL INSPECTION, NORMOCEPHALIC - Eye Exam Eye Exam: EOMI, Normal appearance, PERRL - ENT Exam ENT Exam: Mucous Membranes Moist Additional comments: hoarse voice - Neck Exam Neck exam: Normal Inspection - Respiratory Exam Respiratory Exam: Clear to PA & Lateral, NORMAL BREATHING PATTERN, UNREMARKABLE - Cardiovascular Exam Cardiovascular Exam: RRR, +S1, +S2 - GI/Abdominal Exam GI & Abdominal Exam: Soft, Unremarkable. absent: Distended, Tenderness - Extremities Exam Extremities exam: normal inspection - Back Exam Back exam: NORMAL INSPECTION - Neurological Exam Neurological exam: Alert, CN II-XII Intact, Normal Gait, Oriented x3 - Psychiatric Exam Psychiatric exam: Normal Affect, Normal Mood - Skin Skin Exam: Dry, Intact, Normal Color, Warm Discharge Plan - Follow Up Plan Condition: IMPROVED Disposition: HOME/ ROUTINE Patient education suggested?: Yes Instructions: Dysphagia (DC) Additional Instructions: Follow-up with Dr. Mendiola within 3-5 days of discharge. He will go over the results of the biopsy when available. Follow-up with your primary care physician Dr. Opal Macias within 1 week of discharge. Continue to eat a soft diet as tolerated. You should also drink protein shakes to ensure you are getting enough nutrients. If symptoms recur, return to the nearest emergency room. Referrals: Zenon Mendiola MD [Staff Provider] - Opal Macias [Non-Staff] -
[2018-06-11 15:55] VITALS: BP 142/68; PULSE 66; TEMP 98.2
== END 2018-06-11 16:10 | disposition home or self-care (01) ==
LOC: C.ER 11:15 → C.9E 13:59 → C.3T 15:22
PROVIDERS: ADMIT Internal Medicine; ATTEND Internal Medicine
DX: J38.7 Other diseases of larynx (principal); R13.10 Dysphagia, unspecified; F17.210 Nicotine dependence, cigarettes, uncomplicated; F41.9 Anxiety disorder, unspecified; E78.5 Hyperlipidemia, unspecified; E11.22 Type 2 diabetes mellitus with diabetic chronic kidney disease; I12.9 Hypertensive chronic kidney disease with stage 1 through stage 4 chronic kidney disease, or unspecified chronic kidney disease; N18.9 Chronic kidney disease, unspecified; J34.2 Deviated nasal septum
CPT/HCPCS: 36415; 70450; 71045; 71250; 74176; 74230; 80053; 81001; 82948; 84443; 85025; 92526; 92610; 92611; 99285; G0378; G8996; G8997; J1644; J7030; J7042